=== PATIENT | male | born 2000 | race Caucasian/White ===

== ENCOUNTER 2024-01-29 18:28 | Emergency (ER) | payer OTHER ==
[~2024-01-29] VITALS: Ht 182.9 cm; Wt 81.8 kg
[2024-01-29 18:35] VITALS: BP 128/86; TEMP 98.4
[2024-01-29 21:28] VITALS: PULSE 88
== END 2024-01-29 21:28 | disposition home or self-care (01) ==
LOC: COL.ER 18:28
DX: S00.11XA Contusion of right eyelid and periocular area, initial encounter (principal); Y04.0XXA Assault by unarmed brawl or fight, initial encounter